=== PATIENT | male | born 1985 | race African-American/Black ===

== ENCOUNTER 2017-11-08 20:15 | Emergency (ER) | payer OTHER | END 2017-11-08 20:50 | disposition home or self-care (01) | LOC: ER 20:15 | DX: S39.012A Strain of muscle, fascia and tendon of lower back, initial encounter (principal); R03.0 Elevated blood-pressure reading, without diagnosis of hypertension; F12.10 Cannabis abuse, uncomplicated; J45.909 Unspecified asthma, uncomplicated; X50.0XXA Overexertion from strenuous movement or load, initial encounter; Y93.89 Activity, other specified; Y92.89 Other specified places as the place of occurrence of the external cause; Y99.8 Other external cause status | CPT/HCPCS: 99283 ==

== ENCOUNTER 2019-03-05 11:12 | Emergency (ER) | payer SELFPAY ==
[~2019-03-05] VITALS: Ht 190.5 cm; Wt 127.0 kg
[~2019-03-05 11:12] MED LIST: HYDR-3164 PO; METH-37 PO; METH4TAB2 PO; TRAM50TA PO
[2019-03-05] MEDS ORDERED: ASPIRIN CHEWABLE 81 MG TABLET. PO ONE (11:30)
--- NOTE | 2019-03-05 11:32 | EKG ---
[facility] [address] [place] [address] Test Date: 2019-03-05 Test Time: 11:24:35 Pat Name: KRIS REID Department: Room: Gender: M Tubing Tester: : 1985 Requested By: ROD SLAUGHTER Order Number: [id number] Reading MD: Measurements Intervals [place] Rate: 100 P: 52 PA: 132 QRS: 37 QRSD: 88 T: -38 QT: 330 QTc: 428 Interpretive Statements SINUS TACHYCARDIA LEFT ATRIAL ABNORMALITY ST & T ABNORMALITY, CONSIDER INFERIOR ISCHEMIA OR LEFT VENTRICULAR STRAIN T ABNORMALITY IN ANTEROLATERAL LEADS ABNORMAL ECG No previous ECG available for comparison
--- NOTE | 2019-03-05 11:32 | PHYS DOC ---
Past Medical History Past Medical History: No Pertinent History, Asthma Past Surgical History: No Surgical History Smoking: Quit Less Than 1 Year Alcohol Use: None Drug Use: Marijuana Adult General Chief Complaint Chief Complaint: CHEST PAIN-NON CARDIAC NATURE HPI HPI Patient is a 33-year-old -[place] male who presents to the emergency department for evaluation. He states that overnight, he began expressing some anterior left-sided chest pain, described both as a heaviness, tightness, and sharp pain, with some paresthesias in his left arm without any muscle weakness. Sitting upright from a supine position, as well as movement of his left arm, and upper body, as well as physical activity and deep breathing or worsen his pain. Laying supine helps improve his pain. He has not had any fevers or chills, nausea, or vomiting. There are no alleviating, or exacerbating factors to his symptoms otherwise. He does not have any family history of premature onset coronary disease. Review of Systems Review of Systems Constitutional: Denies fever or chills [] Eyes: Denies change in visual acuity, redness, or eye pain [] HENT: Denies nasal congestion or sore throat [] Respiratory: Denies cough. Admits to some pleuritic component of his pain, as well as some shortness of breath[] Cardiovascular: No additional information not addressed in HPI [] GI: Denies abdominal pain, nausea, vomiting, bloody stools or diarrhea [] : Denies dysuria or hematuria [] Musculoskeletal: Denies back pain or joint pain [] Integument: Denies rash or skin lesions. Denies diaphoresis. [] Neurologic: Denies headache, focal weakness or sensory changes [] Endocrine: Denies polyuria or polydipsia [] All other systems were reviewed and found to be within normal limits, except as documented in this note. Current Medications Current Medications Current Medications Medications (Trade) Dose Ordered Sig/Tito Start Time Stop Time Status Last Admin Dose Admin Aspirin (Children'S Aspirin) 324 mg 1X ONCE 03/05/19 11:30 03/05/19 11:32 DC 03/05/19 11:56 324 MG Allergies Allergies Allergies Coded Allergies Type Severity Reaction Last Updated Verified No Known Drug Allergies 02/21/14 No Physical Exam Physical Exam PHYSICAL EXAM: CONSTITUTIONAL: Well developed, well nourished HEAD: normocephalic, atraumatic EENT: PERRL, EOMI. Conjunctivae normal color, sclerae non-icteric; moist mucous membranes. NECK: Supple, non-tender; no meningismus. LUNGS: Lungs CTA, breathing even and unlabored. Normal air movement. HEART: Regular rate and rhythm, no murmur CHEST: No deformity; there is mild tenderness to palpation to the anterior left chest wall, which reproduces the patient's pain. ABDOMEN: The abdomen is soft, and non-tender, no masses or bruits. EXTREM: Normal ROM; no deformity, no calf tenderness. Normal pulses palpable in all extremities. There is no pedal edema. SKIN: No rash; no diaphoresis NEURO: Alert; normal speech and cognition; CN's grossly intact; strength grossly intact without focal deficit. There is no sensory deficit. Sensation in the left upper extremity is symmetric to other extremities. Visual huntley are intact by confrontation. There is no cerebellar deficit. BACK: No CVA TTP. Current Patient Data Vital Signs Vital Signs Date Time Temp Pulse Resp B/P (MAP) Pulse Ox O2 Delivery O2 Flow Rate FiO2 03/05/19 11:14 98.2 100 18 172/82 (112) 98 Room Air 98.2 Lab Values Laboratory Tests Test 03/05/19 11:48 White Blood Count 6.8 x10^3/uL (4.0-11.0) Red Blood Count 5.22 x10^6/uL (4.30-5.70) Hemoglobin 14.5 g/dL (13.0-17.5) Hematocrit 43.4 % (39.0-53.0) Mean Corpuscular Volume 83 fL (79-100) Mean Corpuscular Hemoglobin 28 pg (25-35) Mean Corpuscular Hemoglobin Concent 33 g/dL (31-37) Red Cell Distribution Width 13.8 % (11.5-14.5) Platelet Count 229 x10^3/uL (140-400) Neutrophils (%) (Auto) 63 % (31-73) Lymphocytes (%) (Auto) 23 % (24-48) L Monocytes (%) (Auto) 9 % (0-9) Eosinophils (%) (Auto) 4 % (0-3) H Basophils (%) (Auto) 1 % (0-3) Neutrophils # (Auto) 4.3 x10^3/uL (1.8-7.7) Lymphocytes # (Auto) 1.6 x10^3/uL (1.0-4.8) Monocytes # (Auto) 0.6 x10^3/uL (0.0-1.1) Eosinophils # (Auto) 0.2 x10^3/uL (0.0-0.7) Basophils # (Auto) 0.0 x10^3/uL (0.0-0.2) Erythrocyte Sedimentation Rate 14 (0-15) D-Dimer (Corin) 0.30 ug/mlFEU (0.00-0.50) Sodium Level 144 mmol/L (136-145) Potassium Level 3.7 mmol/L (3.5-5.1) Chloride Level 105 mmol/L (98-107) Carbon Dioxide Level 30 mmol/L (21-32) Anion Gap 9 (6-14) Blood Urea Nitrogen 10 mg/dL (8-26) Creatinine 1.1 mg/dL (0.7-1.3) Estimated GFR (Cockcroft-Gault) 94.5 BUN/Creatinine Ratio 9 (6-20) Glucose Level 126 mg/dL (70-99) H Calcium Level 9.0 mg/dL (8.5-10.1) Total Bilirubin 0.4 mg/dL (0.2-1.0) Aspartate Amino Transferase (AST) 21 U/L (15-37) Alanine Aminotransferase (ALT) 29 U/L (16-63) Alkaline Phosphatase 92 U/L (46-116) Creatine Kinase 355 U/L (39-308) H Creatine Kinase MB (Mass) 1.5 ng/mL (0.0-3.6) Creatine Kinase MB Relative Index 0.4 % (0-4) Troponin I Quantitative < 0.017 ng/mL (0.000-0.055) C-Reactive Protein, Quantitative 12.9 mg/L (0-3.3) H ND-Oak-P-Type Natriuretic Peptide 10 pg/mL (0-124) Total Protein 8.0 g/dL (6.4-8.2) Albumin 3.7 g/dL (3.4-5.0) Albumin/Globulin Ratio 0.9 (1.0-1.7) L Lipase 100 U/L (73-393) Laboratory Tests 03/05/19 11:48 Laboratory Tests 03/05/19 11:48 EKG EKG []Normal sinus rhythm at a rate of 10 1 bpm, normal axis, normal intervals, nonspecific ST/T changes are present inferiorly/laterally, there are no old EKGs available for comparison. Radiology/Procedures Radiology/Procedures [PROCEDURE: CHEST PA & LATERAL CHEST PA LATERAL History: Chest pain for one day Comparison: None available Findings: 2 views of the chest are submitted. There are patchy areas of airspace opacity bilaterally right greater than left, likely some associated calcification. There is no dependent pleural fluid or pneumothorax. Heart size is within normal limits. Impression: 1. There is patchy airspace opacity bilaterally right greater than left, some areas which are probably partially calcified. Findings could be due to component of old granulomatous disease although more acute superimposed infiltrate not excluded.] Course & Med Decision Making Course & Med Decision Making Pertinent Labs and Imaging studies reviewed. (See chart for details) []1:40 PM: The patient's condition remains stable, he is feeling significantly better after IV Toradol. His pain remains somewhat reproducible with movement and palpation. His HEART score is 1. I discussed test results with the patient, the low clinical suspicion for cardiac etiology, something he agrees with, home care plan with NSAIDs and heat, and return precautions for new or worsening symptoms. Dragon Disclaimer Dragon Disclaimer This electronic medical record was generated, in whole or in part, using a voice recognition dictation system. Departure Departure Impression: Primary Impression: Atypical chest pain Additional Impression: Chest wall pain Disposition: 01 HOME, SELF-CARE Condition: STABLE Patient Instructions: Chest Wall Pain, Musculoskeletal Pain Additional Instructions: Ibuprofen 400-600 mg every 6 hours may help improve your symptoms. Applying a heating pad to the affected area may help improve your symptoms. Use the provided resources to help establish care with a primary care provider to schedule an appointment for further follow-up. Return to medical care for any new or worsening symptoms, development of increasing trouble breathing, dizziness, lightheadedness, nausea, vomiting, or any other new, or concerning symptoms. Problem Qualifiers ROD SLAUGHTER MD Mar 05, 2019 11:32
[2019-03-05 11:59] LABS: BASO % 1 % (0-3); EOS # 0.2 x10^3/uL (0.0-0.7); EOS % 4 % (0-3); HEMATOCRIT 43.4 % (39.0-53.0); HEMOGLOBIN 14.5 g/dL (13.0-17.5); LYMPH # 1.6 x10^3/uL (1.0-4.8); LYMPH % 23 % (24-48); MEAN CORPUSCULAR HEMOGLOBIN 28 pg (25-35); MEAN CORPUSCULAR HGB CONC 33 g/dL (31-37); MEAN CORPUSCULAR VOLUME 83 fL (79-100); MONO # 0.6 x10^3/uL (0.0-1.1); MONO % 9 % (0-9); NEUT # 4.3 x10^3/uL (1.8-7.7); NEUT % 63 % (31-73); PLATELET COUNT 229 x10^3/uL (140-400); RED BLOOD COUNT 5.22 x10^6/uL (4.30-5.70); RED CELL DISTRIBUTION WIDTH 13.8 % (11.5-14.5); WHITE BLOOD COUNT 6.8 x10^3/uL (4.0-11.0)
[2019-03-05 12:08] LABS: CREATININE 1.1 mg/dL (0.7-1.3); GFR 94.5; POTASSIUM 3.7 mmol/L (3.5-5.1)
[2019-03-05 12:14] LABS: ALBUMIN 3.7 g/dL (3.4-5.0); ALBUMIN/GLOBULIN RATIO 0.9 (1.0-1.7); C-REACTIVE PROTEIN 12.9 mg/L (0-3.3); TOTAL BILIRUBIN 0.4 mg/dL (0.2-1.0)
--- NOTE | 2019-03-05 12:26 | RAD ---
CHEST PA LATERAL History: Chest pain for one day Comparison: None available Findings: 2 views of the chest are submitted. There are patchy areas of airspace opacity bilaterally right greater than left, likely some associated calcification. There is no dependent pleural fluid or pneumothorax. Heart size is within normal limits. Impression: 1. There is patchy airspace opacity bilaterally right greater than left, some areas which are probably partially calcified. Findings could be due to component of old granulomatous disease although more acute superimposed infiltrate not excluded. Electronically signed by: Thomas Berger MD (03/05/2019 12:23 PM) [id number]
[2019-03-05 13:20] VITALS: BP 134/75
== END 2019-03-05 13:53 | disposition home or self-care (01) ==
LOC: ER 11:12
DX: R07.89 Other chest pain (principal); R20.2 Paresthesia of skin; J45.909 Unspecified asthma, uncomplicated; Z87.891 Personal history of nicotine dependence
CPT/HCPCS: 36415; 71046; 80053; 82553; 83690; 83880; 84484; 85025; 85379; 85651; 86140; 93005; 99285-25